=== PATIENT | male | born 1995 | race Caucasian/White ===

== ENCOUNTER 2020-05-30 14:59 | Inpatient (IN) ==
[2020-05-30 16:04] LABS: Amphetamine Screen,Urine Negative ng/mL (Cutoff=1000); Barbiturate Screen,Urine Negative ng/mL (Cutoff=200); Benzodiazepines Screen,Urine Negative ng/mL (Cutoff=200); Cannabinoid Screen,Urine Negative ng/mL (Cutoff = 50); Cocaine Screen,Urine Negative ng/mL (Cutoff= 300); Opiate Screen,Urine Negative ng/mL (Cutoff=300); Phencyclidine Screen,Urine Negative ng/mL (Cutoff=25)
[2020-05-30] MEDS ORDERED: Haloperidol Lactate 5 MG/ML VIAL IM PRN (19:16)
[2020-05-30] MEDS ORDERED: *HR* LORazepam 1 MG TABLET PO PRN (19:16)
[2020-05-30] MEDS ORDERED: Acetaminophen 325 MG TABLET PO PRN (19:16)
[2020-05-30] MEDS ORDERED: *HR* LORazepam 2 MG/ML VIAL IM PRN (19:16)
[2020-05-30] MEDS ORDERED: haloperidoL 5 MG TABLET PO PRN (19:16)
[2020-05-30] MEDS ORDERED: MOM Conc 10 ML UD.LIQ PO PRN (19:16)
[2020-05-30] MEDS: Lithium Carbonate ER 300 MG TABLET.ER PO SCH (20:53)
[2020-05-30] MEDS: hydrOXYzine pamoate 25 MG CAPSULE PO PRN (22:03)
[2020-05-30] MEDS: traZODone 50 MG TABLET PO PRN (22:52)
[2020-05-31] MEDS: Lithium Carbonate ER 300 MG TABLET.ER PO SCH ×2 (08:33→21:51)
[2020-05-31] MEDS: Nicotine 21 MG PATCH.TD24 TD SCH (08:34)
[2020-05-31] MEDS: traZODone 50 MG TABLET PO PRN (23:12)
[2020-06-01] MEDS: hydrOXYzine pamoate 25 MG CAPSULE PO PRN (01:05)
[2020-06-01] MEDS: Lithium Carbonate ER 300 MG TABLET.ER PO SCH ×2 (08:52→21:14)
[2020-06-01] MEDS: Nicotine 21 MG PATCH.TD24 TD SCH (08:52)
[2020-06-01] MEDS ORDERED: Mag Hydrox/Al Hydrox/Simeth 30 ML UDC PO PRN (15:35)
[2020-06-01] MEDS ORDERED: Lurasidone 20 MG TABLET PO SCH (18:00)
[2020-06-01] MEDS ORDERED: OLANZapine 10 MG TAB.RAPDIS PO SCH (21:00)
[2020-06-02] MEDS: Nicotine 21 MG PATCH.TD24 TD SCH (09:05)
[2020-06-02 09:22] VITALS: BP 112/77
[2020-06-02 09:30] LABS: Chol/HDL Ratio 4.6 (0-4.9)
[2020-06-02] MEDS: Lithium Carbonate ER 300 MG TABLET.ER PO SCH (10:01)
== END 2020-06-02 14:10 | disposition home or self-care (01) | DRG 750 ==
LOC: EMEROOARM 14:59 → SUATTDRO 19:12 → 1ANU 19:12
PROVIDERS: ADMIT Psychiatry & Neurology Psychiatry; ATTEND Psychiatry & Neurology Forensic Psychiatry